=== PATIENT | female | born 2000 | race Caucasian/White ===

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

== ENCOUNTER 2019-02-14 22:27 | Outpatient (CLI) | payer MEDICAID ==
[2019-02-14 23:11] LABS: APPEARANCE,URINE SLIGHTLY-CLOUDY; BILIRUBIN,URINE NEGATIVE (NEGATIVE); GLUCOSE, URINE 150 mg/dL (NEGATIVE); KETONES,URINE NEGATIVE (NEGATIVE); LEUKOCYTE ESTERASE,URINE NEGATIVE (NEGATIVE); NITRITE,URINE NEGATIVE (NEGATIVE); PROTEIN,URINE 30 mg/dL (NEGATIVE); URINE SPECIFIC GRAVITY 1.035
[2019-02-14 23:12] LABS: COLOR,URINE YELLOW
[2019-02-14 23:40] LABS: URINE AMPHETAMINES SCREEN NEGATIVE; URINE BARBITURATES SCREEN NEGATIVE; URINE BENZODIAZEPINES SCREEN NEGATIVE; URINE COCAINE SCREEN NEGATIVE; URINE METHADONE SCREEN NEGATIVE; URINE PHENCYCLIDINE SCREEN NEGATIVE
[2019-02-14 23:41] LABS: URINE MARIJUANA (THC) SCREEN UNCONFIRMED POSITIVE
[2019-02-15 02:22] LABS: CHLAM PCR NOT DETECTED (NOT DETECT); GON PCR NOT DETECTED (NOT DETECT)
== END 2019-02-15 00:05 | disposition home or self-care (01) ==
LOC: LC 22:27
PROVIDERS: ATTEND Obstetrics & Gynecology
PROC: 4A1HXCZ Monitoring of Products of Conception, Cardiac Rate, External Approach (ICD-10-PCS; principal; 2019-02-14)
DX: O47.03 False labor before 37 completed weeks of gestation, third trimester (principal); Z3A.36 36 weeks gestation of pregnancy
CPT/HCPCS: 87077; 81001; 87081; 80307; 87491; 87591; 84112; 59025; G0480 ×2; 80349

== ENCOUNTER 2019-02-17 22:21 | Outpatient (CLI) | payer MEDICAID ==
--- NOTE | 2019-02-17 22:23 | Non Stress Test Report ---
Non Stress Test Datetime Report Generated by CPN: 02/17/2019 22:22 DEMOGRAPHIC Test Number: 1 EGA NST: 36.5 INDICATION Indication for Study: Ordered by Provider URINE RESULTS Urine Protein, NST: Positive Urine Ketones - NST: Negative Urine Glucose - NST: Positive Urine Blood - NST: Negative MONITORING Time on Monitor: 02/14/2019 22:44 Time off Monitor: 02/15/2019 23:56 NST Duration: 1512 NST INTERVENTIONS NST Interventions: PO Hydration Physician Notified NST: Dr.Marcus BABY A: [id number] BABY A Movement : Present Contraction Frequency : irreg FHR Baseline : 120 Accelerations : 15X15 Decelerations : None Variability : Moderate 6-25bpm NST Review: Meets Criteria for Reactive NST NST Review and Verified By : Pamela Campoverde RN NST Results: Reactive NST REPORT Report Trigger: Send Report
[2019-02-17 23:11] LABS: APPEARANCE,URINE CLOUDY; BILIRUBIN,URINE NEGATIVE (NEGATIVE); COLOR,URINE YELLOW; GLUCOSE, URINE NEGATIVE (NEGATIVE); KETONES,URINE NEGATIVE (NEGATIVE); LEUKOCYTE ESTERASE,URINE SMALL (NEGATIVE); NITRITE,URINE NEGATIVE (NEGATIVE); PROTEIN,URINE 30 mg/dL (NEGATIVE); URINE SPECIFIC GRAVITY 1.017; UROBILINOGEN,URINE NEGATIVE mg/dL (<2.0)
[2019-02-17 23:34] LABS: URINE AMPHETAMINES SCREEN NEGATIVE; URINE BARBITURATES SCREEN NEGATIVE; URINE BENZODIAZEPINES SCREEN NEGATIVE; URINE COCAINE SCREEN NEGATIVE; URINE METHADONE SCREEN NEGATIVE; URINE PHENCYCLIDINE SCREEN NEGATIVE
[2019-02-17 23:39] LABS: URINE MARIJUANA (THC) SCREEN UNCONFIRMED POSITIVE
--- NOTE | 2019-02-17 23:55 | Non Stress Test Report ---
Non Stress Test Datetime Report Generated by CPN: 02/17/2019 23:54 DEMOGRAPHIC Test Number: 2 EGA NST: 37.1 INDICATION Indication for Study: Other Indication for Study (NST) Other: Labor check VITAL SIGNS Temperature - NST: 98.3 Pulse - NST: 88 RESP - NST: 16 NBPSYS NST: 99 NBPDIA NST: 57 URINE RESULTS Urine Protein, NST: Positive Urine Ketones - NST: Negative Urine Glucose - NST: Negative Urine Blood - NST: Positive MONITORING Monitor Explained: Monitor Explained; Test Explained; Patient Verbalized Understanding Time on Monitor: 02/17/2019 22:44 Time off Monitor: 02/17/2019 23:20 NST Duration: 36 NST INTERVENTIONS NST Interventions: PO Hydration Physician Notified NST: Dr. Younger BABY A Movement : Present Contraction Frequency : None noted FHR Baseline : 125 Accelerations : 15X15 Decelerations : None Variability : Moderate 6-25bpm NST Review: Meets Criteria for Reactive NST NST Review and Verified By : E. Jilek RN NST Results: Reactive NST REPORT Report Trigger: Send Report
== END 2019-02-17 23:40 | disposition home or self-care (01) ==
LOC: LC 22:21
PROVIDERS: ATTEND Obstetrics & Gynecology
PROC: 4A1HXCZ Monitoring of Products of Conception, Cardiac Rate, External Approach (ICD-10-PCS; principal; 2019-02-17)
DX: O47.1 False labor at or after 37 completed weeks of gestation (principal); Z3A.37 37 weeks gestation of pregnancy
CPT/HCPCS: 59025; 80307; 81005; 84112

== ENCOUNTER 2019-02-24 10:30 | Inpatient (IN) | payer MEDICAID ==
[2019-02-24 11:12] LABS: APPEARANCE,URINE CLOUDY; BILIRUBIN,URINE NEGATIVE (NEGATIVE); COLOR,URINE YELLOW; GLUCOSE, URINE NEGATIVE (NEGATIVE); KETONES,URINE NEGATIVE (NEGATIVE); LEUKOCYTE ESTERASE,URINE TRACE (NEGATIVE); NITRITE,URINE NEGATIVE (NEGATIVE); PROTEIN,URINE 100 mg/dL (NEGATIVE); URINE SPECIFIC GRAVITY 1.005; UROBILINOGEN,URINE NEGATIVE mg/dL (<2.0)
[2019-02-24 11:33] LABS: URINE AMPHETAMINES SCREEN NEGATIVE; URINE BARBITURATES SCREEN NEGATIVE; URINE BENZODIAZEPINES SCREEN NEGATIVE; URINE COCAINE SCREEN NEGATIVE; URINE MARIJUANA (THC) SCREEN NEGATIVE; URINE METHADONE SCREEN NEGATIVE; URINE PHENCYCLIDINE SCREEN NEGATIVE
[2019-02-24] MEDS ORDERED: PENICILLIN G-K 5 MILLION UNIT VIAL ONE ×4 (11:51→23:52)
[2019-02-24] MEDS ORDERED: OXYTOCIN/NORMAL SALINE 20 UNIT/1,000 ML RTUINJ ONE (11:51)
[2019-02-24] MEDS ORDERED: MISOPROSTOL 0.2 MG TABLET ONE (11:51)
[2019-02-24] MEDS ORDERED: LIDOCAINE 1% INJ-PF (10 MG/ML) 30 ML SDV ONE (11:51)
[2019-02-24] MEDS ORDERED: OXYTOCIN/NORMAL SALINE 20 UNIT/1,000 ML RTUINJ IV PRN (11:52)
[2019-02-24] MEDS ORDERED: PENICILLIN G POTASSIUM 5,000,000 UNIT in DEXTROSE 5%-WATER 100 ML IV ONE (11:53)
--- NOTE | 2019-02-24 12:22 | Admission Physical ---
Datetime Report Generated by CPN: 02/24/2019 12:22 CURRENT ADMISSION Hx Assessment: The History has been Reviewed and is Current Chief Complaint: Suspected Ruptured Membranes Indication for Induction: PROM Admit Impression : Term, Intrauterine Admit Plan: Admit to Unit; Initiate Labor Augmentation Protocol ALLERGIES Medication Allergies: No Medication Allergies: No Known Allergies (02/24/2019) Latex: No Latex Allergies Food Allergies: No known allergies Environmental Allergies: No known allergies OBSTETRICAL HISTORY EDC: 03/09/2019 00:00 : 1 Para: 0 Term: 0 : 0 SAB: 0 IAB: 0 Ectopic: 0 Livin Cesareans: 0 VBACs: 0 Multiple Births: 0 Gestational Diabetes: No Rh Sensitization: No Incompetent Cervix: No RASHMI: No Infertility: No ART Treatment: No Uterine Anomaly: No IUGR: No Hx Previous C/S: No Macrosomia: No Hx Loss/Stillborn: No PIH: No Hx : No Placenta Previa/Abruption: No Depression/PP Depression: No PTL/PROM: No Post Hemorrhage: No Current Procedures: Ultrasound; NST Obstetrical History Comments: G1 - Current SEE RECORDS Alcohol: No Marijuana : No Cocaine: No Other Illicit Drugs: No Cigarettes: Never Smoker. [id number] MEDICAL HISTORY Diabetes: No Blood Transfusion: No Pulmonary Disease (Asthma, TB): No Breast Disease: No Hypertension: No Cloth Neutralizer Surgery: No Heart Disease: No Hosp/Surgery: No Autoimmune Disorder: No Anesthetic Complications: No Kidney Disease: No Abnormal Pap Smear: No Neuro/Epilepsy: No Psychiatric Disorders: No Other Medical Diseases: No Hepatitis/Liver Disease: No Significant Family History: No Varicosities/Phlebitis: No Trauma/Violence : No Thyroid Dysfunction: No INFECTIOUS HISTORY Gonorrhea: No Genital Herpes: No Chlamydia: No Tuberculosis: No Syphilis: No Hepatitis: No HIV/AIDS Exposure: No Rash or Viral Illness: No HPV: No PHYSICAL EXAM General: Normal Heart: Normal Lungs: Normal Breast: Normal Back: Normal Abdomen: Normal Extremities: Normal Vital Signs: Reviewed; Within Normal Limits VAGINAL EXAM Dilatation: 3 Effacement: 50 Station: -2 Contraction Comments: rare MEMBRANES Membranes: Ruptured Amniotic Fluid Color: Clear FETUS A EGA: 38.1 Monitoring: External US Variability: Moderate 6-25bpm Decelerations: None FHR Category: Category I Presentation: Vertex Admit Comment: 19yo @ 38.1 into L_D with SROM @1000 today. Pt. is B pos, RI, GBS positive with uncomplicated but sporadic and late entry to care. Penicillin started for GBS prophylaxis and will be augmented with pitocin per protocol. Denies any concerns at this time PLANS FOR LABOR AND DELIVERY Labor and Delivery: None Pain Management: Epidural Feeding Preference: Both Benefit of Breast Feed Discussed: Yes Circumcision: Yes INFORMED CONSENT Assignment: Gely Joshi MD Signature: with User ID: Manolo : with User ID: [email or web address]
[2019-02-24 12:23] LABS: ABSOLUTE BASOPHILS # (AUTO) 0.1 10^3/uL (0.0-0.2); ABSOLUTE EOSINOPHILS # (AUTO) 0.1 10^3/uL (0.0-0.6); ABSOLUTE LYMPHOCYTES (AUTO) 1.4 10^3/uL (0.5-4.7); ABSOLUTE MONOCYTES (AUTO) 0.6 10^3/uL (0.1-1.4); BASOPHILS % (AUTO) 1.2 % (0-2); EOSINOPHILS % (AUTO) 0.6 % (0-6); HEMATOCRIT 34.4 % (36.0-47.0); HEMOGLOBIN 11.8 g/dL (12.0-15.5); LYMPHOCYTES % (AUTO) 12.3 % (13-45); MEAN CORPUSCULAR HEMOGLOBIN 29.8 pg (27.0-33.4); MEAN CORPUSCULAR HGB CONC 34.2 g/dL (32.0-36.0); MEAN CORPUSCULAR VOLUME 87 fl (80-97); PLATELET COUNT 247 10^3/uL (150-450); RED BLOOD COUNT 3.95 10^6/uL (3.72-5.28); RED CELL DISTRIBUTION WIDTH 12.6 % (11.5-14.0); SEGMENTED NEUTROPHILS % (AUTO) 80.9 % (42-78); TOTAL CELLS COUNTED % (AUTO) 100 %; WHITE BLOOD COUNT 11.1 10^3/uL (4.0-10.5)
[2019-02-24] MEDS: PENICILLIN G POTASSIUM 2,500,000 UNIT in DEXTROSE 5%-WATER 50 ML IV SCH ×2 (16:07→20:19)
[2019-02-24] MEDS ORDERED: NALBUPHINE HCL INJ 10 MG/1 ML AMPULE INJ ONE (22:53)
[2019-02-24] MEDS ORDERED: PROMETHAZINE HCL INJ 25 MG/1 ML VIAL IV ONE (22:53)
[2019-02-24] MEDS ORDERED: NALBUPHINE HCL INJ 10 MG/1 ML AMPULE ONE (23:10)
[2019-02-24] MEDS ORDERED: PROMETHAZINE HCL INJ 25 MG/1 ML VIAL ONE (23:10)
[2019-02-25] MEDS ORDERED: OXYTOCIN/NORMAL SALINE 20 UNIT/1,000 ML RTUINJ ONE (02:13)
[2019-02-25] MEDS ORDERED: DIPH/PERTUSS(ACELL)/TETANUS VAC/PF 0.5 ML SYR (>=10YO) IM PRN (02:36)
[2019-02-25] MEDS ORDERED: OXYTOCIN/NORMAL SALINE 20 UNIT/1,000 ML RTUINJ IV PRN (02:36)
[2019-02-25] MEDS ORDERED: ZOLPIDEM TARTRATE 5 MG TABLET PO PRN (02:36)
[2019-02-25] MEDS ORDERED: ACETAMINOPHEN WITH CODEINE #3 TABLET PO PRN ×2 (02:36)
[2019-02-25] MEDS ORDERED: DIBUCAINE 1% OINTMENT 56 GM TP PRN (02:36)
[2019-02-25] MEDS ORDERED: BENZOCAINE/MENTHOL AEROSOL SPRAY 56 ML TOP PRN (02:36)
--- NOTE | 2019-02-25 03:58 | Delivery Summary ---
Del Sum A-C Datetime Report Generated by CPN: 02/25/2019 03:58 DELIVERY PERSONNEL DELIVERY PERSONNEL: [id number] Delivery Doctor:: Gely Joshi MD Labor and Delivery Nurse:: Erin Flores RN Labor and Delivery Nurse:: Destiny Ribeiro RN Bobbin Loose End Finder:: Hien Muir RN Nursery Nurse:: Bailee Crawford RN Manager Molecular/MANAGER OF DATA: Jane Khalil, BASKETBALL COMMENTATOR MATERNAL INFORMATION Delivery Anesthesia: Local Medications After Delivery: Pitocin Drip 20 Units/1000ml NSS Maternal Complications: None Provider Comments: of a viable male at 0205 with an OA presentation; APGARS 8, 9; right mediolateral episiotomy LABOR SUMMARY EDC: 03/09/2019 00:00 No. Babies in Womb: 1 Attempted: Yes Labor Anesthesia: None LABOR INFORMATION Reason for Induction: Premature Rupture of Membranes Onset of Labor: 02/24/2019 22:48 Complete Dilatation: 02/25/2019 01:24 Oxytocin: Augmentation Group B Beta Strep: Positive Antibiotics # of Doses: 4 Antibiotics Time of Last Dose: 2428 Name of Antibiotic Given: PCN Steroids Given: None Reason Steroids Not Administered: Not Applicable MEMBRANES Membranes Rupture Method: Spontaneous Rupture of Membranes: 02/24/2019 10:00 Length of Rupture (hr): 16.08 Amniotic Fluid Color: Clear Amniotic Fluid Amount: Moderate Amniotic Fluid Odor: Normal STAGES OF LABOR Stage 1 hr: 2 Stage 1 min: 36 Stage 2 hr: 0 Stage 2 min: 41 Stage 3 hr: 0 Stage 3 min: 5 Total Time in Labor hr: 3 Total Time in Labor min: 22 VAGINAL DELIVERY Episiotomy: Right Mediolateral Laceration #1: Perineal Laceration Extension #1: Second Degree Laceration Repair: Yes Laceration Repair Note: Episiotomy was repaired with 3-0 Vicryl; no extension Sponge Count Correct: Yes Sharps Count Correct: Yes CSECTION DELIVERY Primary Indication: N/A Secondary Indication: N/A CSection Incidence: N/A Labor: N/A Elective: N/A CSection Incision: N/A BABY A INFORMATION Delivery Date/Time: 02/25/2019 02:05 Method of Delivery: Vaginal Born in Route : No : N/A Forceps: N/A Vacuum Extraction: N/A Shoulder Dystocia : No PRESENTATION/POSITION BABY A Presentation: Cephalic Cephalic Presentation: Vertex Vertex Position: Right Occipital Anterior Breech Presentation: N/A PLACENTA INFORMATION BABY A Placenta Delivery Time : 02/25/2019 02:10 Placenta Method of Delivery: Spontaneous Placenta Status: Delivered SCORES BABY A Heart Rate 1 min: >100 bpm Resp Effort 1 min: Good Cry Reflex Irritability 1 min: Cough or Sneeze or Pulls Away Muscle Tone 1 min: Active Motion Color 1 min: Blue/Pale SCORE 1 MIN: 8 Heart Rate 5 min: >100 bpm Resp Effort 5 min: Good Cry Reflex Irritability 5 min: Cough or Sneeze or Pulls Away Muscle Tone 5 min: Active Motion Color 5 min: Body Wood-Ridge, Extremities Blue SCORE 5 MIN: 9 INFANT INFORMATION BABY A Gestational Age at Delivery: 38.2 Gestational Status: Early Term- 37- 38.6 Weeks Infant Outcome : Liveborn Condition : Stable Infant Sex: Male IDENTIFICATION BABY A Verification Date/Time: 02/25/2019 02:15 ID Band Number: [id number] Mother's Name Verified: Yes Infant RN Verifying : C. Gentilin, RN A. Killinger, RN WEIGHT/LENGTH BABY A Birthweight (gm): 3181 Infant Weight (lb): 7 Infant Weight (oz): 0 Infant Length (in): 20.25 Infant Length (cm): 51.44 CORD INFORMATION BABY A No. Cord Vessels: 3 Nuchal Cord : N/A Cord Blood Taken: Yes-For Storage (Mom's Blood type +) Suction: None ASSESSMENT BABY A Skin to Skin: No Transferred To: Remains with Mother BABY B INFORMATION : N/A SIGNATURES Signature: with User ID: [email or web address]
[2019-02-25] MEDS: PENICILLIN G POTASSIUM 2,500,000 UNIT in DEXTROSE 5%-WATER 50 ML IV SCH (06:28)
[2019-02-25] MEDS: IBUPROFEN 800 MG TABLET PO SCH ×3 (07:30→22:38)
[2019-02-25] MEDS: DOCUSATE SODIUM 100 MG CAPSULE PO SCH ×2 (10:30→18:08)
[2019-02-25] MEDS: SENNOSIDES/DOCUSATE 8.6-50 MG 1 EACH TABLET PO SCH (10:30)
[2019-02-25] MEDS: PRENATAL VITAMIN W DHA CAPSULE PO SCH (10:31)
[2019-02-25] MEDS: FERROUS SULFATE 325 MG TABLET PO SCH ×2 (10:31→18:08)
[2019-02-26 06:32] LABS: HEMATOCRIT 32.1 % (36.0-47.0); HEMOGLOBIN 10.9 g/dL (12.0-15.5); MEAN CORPUSCULAR HEMOGLOBIN 29.3 pg (27.0-33.4); MEAN CORPUSCULAR HGB CONC 33.9 g/dL (32.0-36.0); MEAN CORPUSCULAR VOLUME 86 fl (80-97); PLATELET COUNT 238 10^3/uL (150-450); RED BLOOD COUNT 3.72 10^6/uL (3.72-5.28)
[2019-02-26] MEDS: IBUPROFEN 800 MG TABLET PO SCH ×3 (06:51→22:56)
[2019-02-26] MEDS: PRENATAL VITAMIN W DHA CAPSULE PO SCH (09:31)
[2019-02-26] MEDS: DOCUSATE SODIUM 100 MG CAPSULE PO SCH ×2 (09:31→18:31)
[2019-02-26] MEDS: FERROUS SULFATE 325 MG TABLET PO SCH ×2 (09:31→18:31)
[2019-02-26] MEDS: SENNOSIDES/DOCUSATE 8.6-50 MG 1 EACH TABLET PO SCH (09:31)
--- NOTE | 2019-02-26 10:03 | PDOC PROGRESS REPORT ---
Subjective-OB Progress Note for:: 02/26/19 - PP day #1, doing well, no complaints, breast and bottlefeeding, B+, Rubella Immune. Hx of +THC in urine during this Physical Exam (OB) Vital Signs: Temp Pulse Resp BP Pulse Ox 97.9 F 74 14 115/74 100 02/26/19 08:34 02/26/19 08:34 02/26/19 08:34 02/26/19 08:34 02/26/19 08:34 Intake & Output 02/25/19 02/26/19 02/27/19 06:59 06:59 06:59 Intake Total 50 300 Balance 50 300 Weight 69.6 kg - General General Appearance: Appears well, Alert In distress: None - PIH/Pre-Eclampsia Headache: Absent Epigastric Pain: No Visual Changes: No - Episiotomy/Laceration Episiotomy/Laceration Note: Midline Episiotomy with repair - Lochia Lochia Amount: Small 10-25 ml Lochia Color: Rubra/Red - Abdomen Description: Soft, Round Hernia Present: No Fundal Description: Firm, Midline Fundal Height: u/u - u/2 - Respiratory Respiratory Status: No respiratory distress - Abdominal Distension: No distension - Genitourinary Genitourinary Note: voiding - Extremities Upper extremity: Normal inspection Lower extremities: Normal inspection - Neurological Cognition: Normal Orientation: AAOx4 - Psychological Associated symptoms: Normal affect, Normal mood - Skin Skin Temperature: Warm Skin Moisture: Dry Objective-Diagnostic Laboratory: 02/26/19 06:18 02/26/19 06:18 WBC 11.0 H RBC 3.72 Hgb 10.9 L Hct 32.1 L MCV 86 MCH 29.3 MCHC 33.9 RDW 13.0 Plt Count 238 Assessment and Plan(PN) - Assessment and Plan (1) Normal vaginal delivery Is this a current diagnosis for this admission?: Yes (2) Obstetrical laceration, second degree Is this a current diagnosis for this admission?: Yes (3) Qualifiers: Weeks of gestation: 40 weeks Qualified Code(s): Z3A.40 - 40 weeks gestation of Is this a current diagnosis for this admission?: Yes - Time Spent with Patient Time with patient: Less than 15 minutes Medications reviewed and adjusted accordingly: Yes - Disposition Anticipated Discharge: Home Within: within 24 hours
[2019-02-27] MEDS: IBUPROFEN 800 MG TABLET PO SCH (05:11)
[2019-02-27 08:56] VITALS: BP 113/64
[2019-02-27] MEDS: DOCUSATE SODIUM 100 MG CAPSULE PO SCH (10:03)
[2019-02-27] MEDS: PRENATAL VITAMIN W DHA CAPSULE PO SCH (10:03)
[2019-02-27] MEDS: FERROUS SULFATE 325 MG TABLET PO SCH (10:03)
[2019-02-27] MEDS: SENNOSIDES/DOCUSATE 8.6-50 MG 1 EACH TABLET PO SCH (10:03)
--- NOTE | 2019-02-27 10:35 | PDOC PROGRESS REPORT ---
Subjective-OB Progress Note for:: 02/27/19 Subjective: Ready for discharge. Physical Exam (OB) Vital Signs: Temp Pulse Resp BP Pulse Ox 98.3 F 80 15 113/64 97 02/27/19 08:55 02/27/19 08:55 02/27/19 08:55 02/27/19 08:55 02/27/19 08:55 Intake & Output 02/26/19 02/27/19 02/28/19 06:59 06:59 06:59 Intake Total 300 480 Balance 300 480 - PIH/Pre-Eclampsia Clonus: Negative Headache: Absent Epigastric Pain: No Visual Changes: No - Lochia Lochia Amount: Scant < 10 ml Lochia Color: Rubra/Red - Abdomen Description: Tender Hernia Present: No Bowel Sounds: Normoactive Flatus Presence: Present Stool: Yes Fundal Description: Firm, Midline Fundal Height: u/u - u/2 Objective-Diagnostic Laboratory: 02/26/19 06:18 Assessment and Plan(PN) - Time Spent with Patient Medications reviewed and adjusted accordingly: Yes - Disposition Anticipated Discharge: Home
--- NOTE | 2019-02-27 10:40 | PDOC DISCHARGE SUMMARY ---
Final Diagnosis Discharge Date: 02/27/19 - Final Diagnosis (1) Marijuana use in Is this a current diagnosis for this admission?: Yes (2) Normal vaginal delivery Is this a current diagnosis for this admission?: Yes (3) Obstetrical laceration, second degree Is this a current diagnosis for this admission?: Yes (4) Positive GBS test Is this a current diagnosis for this admission?: Yes (5) Is this a current diagnosis for this admission?: Yes Discharge Data - Discharge Medication Home Medications: Vit,Calc76/Iron/Folic [Pnv 29-1 Tablet] 1 tab PO DAILY 02/14/19 Gestational Age: 38.2 wks Reason(s) for Admission: PROM Procedures: Ultrasound Intrapartum Procedure(s): Spontaneous Vaginal Delivery Complication(s): Episiotomy - [place] Data Baby 1 Male at 1 minute: 8 at 5 minutes: 9 Weight: 3.175 kg Home with Mother: Yes Complications: No - Diagnosis Test Laboratory: Temp Pulse Resp BP Pulse Ox 98.3 F 80 15 113/64 97 02/27/19 08:55 02/27/19 08:55 02/27/19 08:55 02/27/19 08:55 02/27/19 08:55 02/24/19 02/24/19 02/26/19 10:37 12:06 06:18 RBC 3.95 3.72 Hgb 11.8 L 10.9 L Hct 34.4 L 32.1 L Urine Opiates Screen NEGATIVE - Discharge information/Instructions Discharge Activity: Activity As Tolerated, Balance Activity w/Rest, Pelvic Rest, Slowly Increase Activity, No tub bath Discharge Diet: Regular Disposition: HOME, SELF-CARE Follow up with: [facility] in: 4, Weeks
== END 2019-02-27 13:58 | disposition home or self-care (01) | DRG 807 ==
LOC: LC 10:30 → LR 11:13 → 2S 02-25 04:25
PROVIDERS: ADMIT Obstetrics & Gynecology; ATTEND Obstetrics & Gynecology
PROC: 10E0XZZ Delivery of Products of Conception, External Approach (ICD-10-PCS; principal; 2019-02-25)
PROC: 0KQM0ZZ Repair Perineum Muscle, Open Approach (ICD-10-PCS; 2019-02-25)
PROC: 0W8NXZZ Division of Female Perineum, External Approach (ICD-10-PCS; 2019-02-25)
DX: O42.02 Full-term premature rupture of membranes, onset of labor within 24 hours of rupture (principal); Z37.0 Single live birth; O99.824 Streptococcus B carrier state complicating childbirth; O70.1 Second degree perineal laceration during delivery; Z3A.38 38 weeks gestation of pregnancy
CPT/HCPCS: 36415; 80307; 81005; 84112; 85025; 85027; 86592; 86850; 86900; 86901; J2300; J2540; J2550; J2590; J3490

== ENCOUNTER 2020-07-07 21:53 | Outpatient (CLI) | payer MEDICAID ==
[2020-07-07 22:33] LABS: APPEARANCE,URINE CLOUDY; BILIRUBIN,URINE NEGATIVE (NEGATIVE); COLOR,URINE YELLOW; GLUCOSE, URINE NEGATIVE (NEGATIVE); KETONES,URINE NEGATIVE (NEGATIVE); LEUKOCYTE ESTERASE,URINE NEGATIVE (NEGATIVE); NITRITE,URINE NEGATIVE (NEGATIVE); PROTEIN,URINE NEGATIVE (NEGATIVE); URINE SPECIFIC GRAVITY 1.024; UROBILINOGEN,URINE NEGATIVE mg/dL (<2.0)
[2020-07-07 22:48] LABS: URINE AMPHETAMINES SCREEN NEGATIVE; URINE BARBITURATES SCREEN NEGATIVE; URINE BENZODIAZEPINES SCREEN NEGATIVE; URINE COCAINE SCREEN NEGATIVE; URINE MARIJUANA (THC) SCREEN NEGATIVE; URINE METHADONE SCREEN NEGATIVE; URINE PHENCYCLIDINE SCREEN NEGATIVE
--- NOTE | 2020-07-07 23:52 | RADIOLOGY REPORT (SQ) ---
US PELVIS HISTORY: Pre-term contractions. Evaluate cervical length. COMPARISON: None. TECHNIQUE: Grayscale, color Doppler, and spectral Doppler ultrasound images of the pelvis were obtained. FINDINGS: There is a single live intrauterine gestation in variable presentation. The placenta is fundal. heart rate is 180 bpm. SAURABH is 14.6 cm. Cervix is 2.4 cm in length and contains a small amount of fluid within the endocervical canal. IMPRESSION: Single live IUP with small amount of fluid in the endocervical canal. Recommend follow-up imaging to evaluate for cervical funneling.
[2020-07-08] MEDS ORDERED: BETAMET ACET/BETAMET NA INJ 6 MG/1 ML IM PRN (00:29)
[2020-07-08] MEDS ORDERED: BETAMET ACET/BETAMET NA INJ 6 MG/1 ML ONE (00:50)
== END 2020-07-08 02:00 | disposition home or self-care (01) ==
LOC: LC 21:53
PROVIDERS: ATTEND Obstetrics & Gynecology
DX: O47.03 False labor before 37 completed weeks of gestation, third trimester (principal); Z3A.31 31 weeks gestation of pregnancy
CPT/HCPCS: 59025; 81001; 80307; 76815; J0702

== ENCOUNTER 2020-07-08 21:06 | Outpatient (CLI) | payer MEDICAID ==
[2020-07-08] MEDS ORDERED: BETAMET ACET/BETAMET NA INJ 6 MG/1 ML ONE (21:09)
[2020-07-08] MEDS ORDERED: BETAMET ACET/BETAMET NA INJ 6 MG/1 ML IM ONE (21:11)
== END 2020-07-08 21:14 | disposition home or self-care (01) ==
LOC: LC 21:06
PROVIDERS: ATTEND Obstetrics & Gynecology
DX: O47.03 False labor before 37 completed weeks of gestation, third trimester (principal); Z3A.31 31 weeks gestation of pregnancy
CPT/HCPCS: 59025; J0702; 96372

== ENCOUNTER 2020-08-27 11:45 | Outpatient (CLI) | payer MEDICAID ==
[2020-08-27 13:01] LABS: APPEARANCE,URINE SLIGHTLY-CLOUDY; BILIRUBIN,URINE NEGATIVE (NEGATIVE); COLOR,URINE YELLOW; GLUCOSE, URINE NEGATIVE (NEGATIVE); KETONES,URINE NEGATIVE (NEGATIVE); LEUKOCYTE ESTERASE,URINE MODERATE (NEGATIVE); NITRITE,URINE NEGATIVE (NEGATIVE); PROTEIN,URINE NEGATIVE (NEGATIVE); URINE SPECIFIC GRAVITY 1.006; UROBILINOGEN,URINE NEGATIVE mg/dL (<2.0)
[2020-08-27 13:17] LABS: URINE AMPHETAMINES SCREEN NEGATIVE; URINE BARBITURATES SCREEN NEGATIVE; URINE BENZODIAZEPINES SCREEN NEGATIVE; URINE COCAINE SCREEN NEGATIVE; URINE MARIJUANA (THC) SCREEN NEGATIVE; URINE METHADONE SCREEN NEGATIVE; URINE PHENCYCLIDINE SCREEN NEGATIVE
--- NOTE | 2020-08-27 13:44 | RADIOLOGY REPORT (SQ) ---
EXAM DESCRIPTION: U/S OB LIMITED IMAGES COMPLETED DATE/TIME: 08/27/2020 1:28 pm REASON FOR STUDY: please document SAURABH COMPARISON: 07/07/2020 TECHNIQUE: Limited transabdominal grayscale ultrasound for evaluation of specific requested obstetri shara parameters. LIMITATIONS: None. FINDINGS: CERVICAL LENGTH: 2.7 cm Closed. SAURABH: 21.7 cm cm. FHR: 140 beats per minute. PRESENTATION: Cephalic. PLACENTA: Fundal grade 3 ANATOMY: Not assessed OTHER: Intrauterine gestation of 37 weeks 3 days. IMPRESSION: LIMITED OBSTETRICAL ULTRASOUND WITH MEASURED PARAMETERS DELINEATED ABOVE. Trimester of : Third trimester - 28 weeks to delivery. TECHNICAL DOCUMENTATION: JOB ID: [id number] 2010 [employer]- All Rights Reserved Reading location - IP/workstation name: [email or web address]
--- NOTE | 2020-08-27 13:47 | Non Stress Test Report ---
Non Stress Test Datetime Report Generated by CPN: 08/27/2020 13:47 DEMOGRAPHIC EGA NST: 38.6 INDICATION Indication for Study (NST) Other: LC at 38.6 MONITORING Monitor Explained: Monitor Explained; Test Explained; Patient Verbalized Understanding Time on Monitor: 08/27/2020 12:30 Time off Monitor: 08/27/2020 13:09 NST Duration: 39 NST INTERVENTIONS NST Interventions: None Physician Notified NST: N.Claire,CNM BABY A: [id number] BABY A Movement : Present Contraction Frequency : None FHR Baseline : 145 Accelerations : 15X15 Decelerations : None Variability : Moderate 6-25bpm NST Review: Meets Criteria for Reactive NST NST Review and Verified By : Alaina Wheatland RN NST Results: Reactive NST COMMENTS NST Comments: CNM on unit reviewing FHT strip NST REPORT Report Trigger: Send Report
== END 2020-08-27 13:46 | disposition home or self-care (01) ==
LOC: LC 11:45
PROVIDERS: ATTEND Student in an Organized Health Care Education/Training Program
DX: O42.92 Full-term premature rupture of membranes, unspecified as to length of time between rupture and onset of labor (principal); Z3A.38 38 weeks gestation of pregnancy
CPT/HCPCS: 76815; 80307; 81005; 84112

== ENCOUNTER 2020-09-02 06:44 | Inpatient (IN) | payer MEDICAID ==
[2020-09-02 07:43] LABS: APPEARANCE,URINE CLEAR; BILIRUBIN,URINE NEGATIVE (NEGATIVE); COLOR,URINE YELLOW; GLUCOSE, URINE NEGATIVE (NEGATIVE); KETONES,URINE NEGATIVE (NEGATIVE); LEUKOCYTE ESTERASE,URINE NEGATIVE (NEGATIVE); NITRITE,URINE NEGATIVE (NEGATIVE); PROTEIN,URINE NEGATIVE (NEGATIVE); URINE SPECIFIC GRAVITY 1.016; UROBILINOGEN,URINE NEGATIVE mg/dL (<2.0)
[2020-09-02 07:59] LABS: URINE AMPHETAMINES SCREEN NEGATIVE; URINE BARBITURATES SCREEN NEGATIVE; URINE BENZODIAZEPINES SCREEN NEGATIVE; URINE COCAINE SCREEN NEGATIVE; URINE MARIJUANA (THC) SCREEN NEGATIVE; URINE METHADONE SCREEN NEGATIVE; URINE PHENCYCLIDINE SCREEN NEGATIVE
--- NOTE | 2020-09-02 08:21 | Admission Physical ---
Datetime Report Generated by CPN: 09/02/2020 08:21 CURRENT ADMISSION Chief Complaint: Suspected Ruptured Membranes Indication for Induction: Not Applicable Admit Impression : Term, Intrauterine ; No Active Labor; Ruptured Membranes Admit Impression- Other: SROM at 0530 w clear fluid Admit Plan: Admit to Unit; Initiate Labor Protocol ALLERGIES Medication Allergies: No Medication Allergies: No Known Allergies (09/02/2020) Latex: No Latex Allergies OBSTETRICAL HISTORY EDC: 09/04/2020 00:00 : 2 Para: 1 Term: 1 : 0 SAB: 0 IAB: 0 Livin Gestational Diabetes: No Rh Sensitization: No Incompetent Cervix: No RASHMI: No Infertility: No ART Treatment: No Uterine Anomaly: No IUGR: No Hx Previous C/S: No Macrosomia: No Hx Loss/Stillborn: No PIH: No Hx : No Placenta Previa/Abruption: No Depression/PP Depression: No PTL/PROM: No Post Hemorrhage: No Current Procedures: Ultrasound Obstetrical History Comments: G1 2019 G2 current SEE RECORDS Alcohol: No Marijuana : No Cocaine: No Other Illicit Drugs: No Cigarettes: Never Smoker. [id number] MEDICAL HISTORY Diabetes: No Blood Transfusion: No Pulmonary Disease (Asthma, TB): No Breast Disease: No Hypertension: No Pneumatic Tool Operator Surgery: No Heart Disease: No Hosp/Surgery: No Autoimmune Disorder: No Anesthetic Complications: No Kidney Disease: No Abnormal Pap Smear: No Neuro/Epilepsy: No Psychiatric Disorders: No Other Medical Diseases: No Hepatitis/Liver Disease: No Significant Family History: No Varicosities/Phlebitis: No Trauma/Violence : No Thyroid Dysfunction: No INFECTIOUS HISTORY Gonorrhea: No Genital Herpes: No Chlamydia: No Tuberculosis: No Syphilis: No Hepatitis: No HIV/AIDS Exposure: No Rash or Viral Illness: No HPV: No PHYSICAL EXAM General: Normal HEENT: Normal Neurologic: Normal Thyroid: Deferred Heart: Normal Lungs: Normal Breast: Deferred Back: Normal Abdomen: Normal Genitourinary Exam: Deferred Extremities: Normal DTRs: Normal Pelvic Type: Adequate Vital Signs: Reviewed; Within Normal Limits VAGINAL EXAM Dilatation: 4 MEMBRANES Membranes: Ruptured Amniotic Fluid Color: Clear FETUS A EGA: 39.5 Monitoring: External US FHR- Baseline: 140 Variability: Moderate 6-25bpm Accelerations: Absent Decelerations: None Presentation: Vertex Admit Comment: SROM at 0530 w clear fluid 4-5 cm on arrival GBS neg Proven for 7 lbs Closely-spaced pregnancies--1 yr old at home Late onset care-began care in at [facility] ASCUS pap, no HPV PTL in 07/07/2020-given steroids Plans unmedicated delivery-has epidural option records on chart Anticipate PLANS FOR LABOR AND DELIVERY Labor and Delivery: None Pain Management: Natural Feeding Preference: Both Circumcision: Yes INFORMED CONSENT Assignment: Hien Armijo MD Signature: with User ID: Angelika : with User ID: Angelika : I personally evaluated and examined the patient in conjunction with the MLP and agree with the assessment, treatment plan and disposition.
[2020-09-02 08:40] LABS: HEMATOCRIT 33.7 % (36.0-47.0); HEMOGLOBIN 11.2 g/dL (12.0-15.5); MEAN CORPUSCULAR HEMOGLOBIN 27.5 pg (27.0-33.4); MEAN CORPUSCULAR HGB CONC 33.2 g/dL (32.0-36.0); MEAN CORPUSCULAR VOLUME 83 fl (80-97); PLATELET COUNT 290 10^3/uL (150-450); RED BLOOD COUNT 4.06 10^6/uL (3.72-5.28); RED CELL DISTRIBUTION WIDTH 13.4 % (11.5-14.0); WHITE BLOOD COUNT 11.2 10^3/uL (4.0-10.5)
[2020-09-02] MEDS ORDERED: OXYTOCIN/0.9 % SODIUM CHLORIDE 30 UNIT/500 ML RTUINJ IV PRN ×2 (09:20→12:37)
[2020-09-02] MEDS ORDERED: OXYTOCIN/0.9 % SODIUM CHLORIDE 30 UNIT/500 ML RTUINJ ONE (09:24)
[2020-09-02] MEDS ORDERED: RINGERS SOLUTION,LACTATED 1,000 ML IV PRN (09:44)
[2020-09-02] MEDS ORDERED: OXYTOCIN 10 UNIT/ML VIAL ONE (10:26)
[2020-09-02] MEDS ORDERED: MISOPROSTOL 0.2 MG TABLET ONE (10:26)
[2020-09-02] MEDS ORDERED: LIDOCAINE 1% INJ-PF (10 MG/ML) 30 ML SDV ONE (10:27)
[2020-09-02] MEDS ORDERED: EPHEDRINE SULFATE INJ 50 MG/1 ML AMPULE ONE (11:42)
[2020-09-02] MEDS ORDERED: FENTANYL/BUPIVACAINE/NS/PF 0 MCG/0 ML RTUINJ EPI ONE (11:42)
[2020-09-02] MEDS ORDERED: ROPIVACAINE HCL 0.2% INJ/PF (2 MG/ML) 20 ML SDV ONE (11:43)
--- NOTE | 2020-09-02 12:32 | Warning Signs in Babies ---
VOD Warning Signs Datetime Report Generated by [facility]: 09/02/2020 12:31 VOD#608 -Warning Signs in Babies: Needs to be viewed. (07/07/2020 21:57:Delicia Go RN)
[2020-09-02] MEDS ORDERED: DIPH/PERTUSS(ACELL)/TETANUS VAC/PF 0.5 ML SYR (>=10YO) IM PRN (12:37)
[2020-09-02] MEDS ORDERED: ACETAMINOPHEN 650 MG SUPP.RECT PR PRN (12:37)
[2020-09-02] MEDS ORDERED: DIBUCAINE 1% OINTMENT 28 GM TP PRN (12:37)
[2020-09-02] MEDS ORDERED: PROMETHAZINE HCL 25 MG TABLET PO PRN (12:37)
[2020-09-02] MEDS ORDERED: PROMETHAZINE HCL 25 MG SUPP.RECT PR PRN (12:37)
[2020-09-02] MEDS ORDERED: MAGNESIUM HYDROXIDE SUSP 30 ML UDCUP PO PRN (12:37)
[2020-09-02] MEDS ORDERED: MEASLES,MUMPS&RUBELLA VACC/PF 0.5 ML VIAL SUBCUT PRN (12:37)
[2020-09-02] MEDS ORDERED: ACETAMINOPHEN WITH CODEINE #3 TABLET PO PRN ×2 (12:37)
[2020-09-02] MEDS ORDERED: ZOLPIDEM TARTRATE 5 MG TABLET PO PRN (12:37)
[2020-09-02] MEDS ORDERED: NA PHOS,M-B/NA PHOS,DI-BA (ADULT) 133 ML ENEMA PR PRN (12:37)
[2020-09-02] MEDS ORDERED: PROMETHAZINE HCL INJ 25 MG/1 ML VIAL IV PRN (12:37)
[2020-09-02] MEDS ORDERED: PSEUDOEPHEDRINE HCL 30 MG TABLET PO PRN (12:37)
[2020-09-02] MEDS ORDERED: DIPHENHYDRAMINE HCL 25 MG CAPSULE PO PRN (12:37)
[2020-09-02] MEDS ORDERED: BENZOCAINE/MENTHOL AEROSOL SPRAY 56 ML TOP PRN (12:37)
[2020-09-02] MEDS ORDERED: GLYCERIN/WITCH HAZEL LEAF 1 EACH MED..WIPE TP PRN (12:37)
--- NOTE | 2020-09-02 14:02 | Birth Certificate Data ---
Cert Data Datetime Report Generated by [employer]: 09/02/2020 14:02 CERTIFICATE DATA 47a. Care: Yes (07/07/2020 21:57:Terri Rodriguez RN) 47b. Date of First Visit: 04/06/2020 00:00 (07/07/2020 21:57:Terri Rodriguez RN) 47c. Date of Last Visit: 09/01/2020 00:00 (07/07/2020 21:57:Terri Rodriguez RN) 47d. Number of Visits: 12 (Annotations: Data stored by [facility] on behalf of user) (07/07/2020 21:57:Terri Rodriguez RN) 48b. Now Livin (07/07/2020 21:57:Kay Pineda RN) 48d. Date of Last Live : 02/25/2019 00:00 (07/07/2020 21:57:Kay Pineda RN) RISK FACTORS IN THIS 49a. Diabetes: No (07/07/2020 21:57:Kay Pineda RN) 49b. Hypertension: No (07/07/2020 21:57:Kay Pineda RN) 49c. Previous Births: 0 (07/07/2020 21:57:Delicia Go RN) 49d. Stillborns: No (07/07/2020 21:57:Kay Pineda RN) 49d. IUGR: No (07/07/2020 21:57:Kay Pineda RN) 49e. Infertility Treatment: No (07/07/2020 21:57:Kay Pineda RN) Mother's Height 50b. Height Inches: 65 (07/07/2020 22:04:QS system process) Mother's Weight 51b. Weight at Delivery (lbs): 161 (09/02/2020 07:37:QS system process) Infections Present/Treated 53a. Gonorrhea: No (07/07/2020 21:57:Kay Pineda RN) Results this Hospital Visit : Negative (07/07/2020 21:57:Terri Rodriguez RN) 53b. Syphilis: No (07/07/2020 21:57:Kay Pineda RN) Results this Hospital Visit: NONREACTIVE (09/02/2020 08:18:QS system process) 53c. Chlamydia: No (07/07/2020 21:57:Kay Pineda RN) Results this Hospital Visit: Negative (07/07/2020 21:57:Terri Rodriguez RN) 53d. Hepatitis B: No (07/07/2020 21:57:Kay Pineda RN) Results this Hospital Visit: Negative (07/07/2020 21:57:Terri Rodriguez RN) 53e. Hepatitis C: Negative (07/07/2020 21:57:Delicia Go RN) 53h. Mother Tested for HBsAG: Yes (07/07/2020 21:57:Terri Rodriguez RN) 53i. Date Tested: 04/15/2020 00:00 (07/07/2020 21:57:Terri Rodriguez RN) 53j. Test Result: Negative (07/07/2020 21:57:Terri Victoriaramses Rodriguez RN) Obstetric Procedures 54a, b, c. Obstetric Procedures: Ultrasound (07/07/2020 21:57:Kay Pineda RN) Cigarette Smoking Cigarette Smoking: Never Smoker. [id number] (07/07/2020 21:57:Kay Pineda RN) 55a. 3 Months Before Preg - Ci (07/07/2020 21:57:eDlicia Go RN) 55a. Packs: 0 (07/07/2020 21:57:Delicia Go RN) 55b. 1st Trimester of Preg- Ci (07/07/2020 21:57:Delicia Go RN) 55b. Packs: 0 (07/07/2020 21:57:Delicia Go RN) 55c. 2nd Trimester of Preg- Ci (07/07/2020 21:57:Delicia Go RN) 55c. Packs: 0 (07/07/2020 21:57:Delicia Go RN) 55d. 3rd Trimester of Preg- Ci (07/07/2020 21:57:Delicia Go RN) 55d. Packs: 0 (07/07/2020 21:57:Delicia Go RN) Onset of Labor 56a. PROM >12 Hrs: 6.67 (09/02/2020 07:20:QS system process) 56b. Precipitous Labor <3 Hrs: 6 (09/02/2020 07:20:QS system process) 56c. Prolonged Labor > 20 Hrs: 6 (09/02/2020 07:20:QS system process) 57a. Induction of Labor: Augmentation (07/07/2020 21:57:Delicia Go RN) 57c. Non-Vertex Presentation A: Vertex (07/07/2020 21:57:Delicia Go RN) 57d. Steroids - Lung Mat: > 24 Hours before Delivery (07/07/2020 21:57:Delicia Go RN) 57d. Steroids - Lung Mat: Celestone 12mg IM - Dose 2 (07/08/2020 21:10:Destiny Ribeiro RN) 57d. Steroids - Lung Mat: Not Applicable (07/07/2020 21:57:Christina Camacho CNM) 57g. Moderate/Heavy Meconium: Clear (09/02/2020 07:20:Terri Rodriguez RN) 57h. Intolerance of Labor: N/A (07/07/2020 21:57:Delicia Go RN) : N/A (07/07/2020 21:57:Delicia Go RN) 57i. Epidural/Spinal Anesthesia: None (07/07/2020 21:57:Delicia Go RN) Method of Delivery 58a. Forceps - Unsuccessful A: N/A (07/07/2020 21:57:Delicia Go RN) 58b. Vacuum - Unsuccessful A: N/A (07/07/2020 21:57:Delicia Go RN) 58c. Presentation at 58c. Presentation at - A : Vertex (07/07/2020 21:57:Delicia Go RN) 58c. Presentation at - A : N/A (07/07/2020 21:57:Delicia Go RN) 58c. Presentation at - A : Cephalic (07/07/2020 21:57:Delicia Go RN) Final Route and Method of Del 58d. Baby A Route/Delivery: Vaginal (09/02/2020 12:10:Delicia Go RN) 58e. Trial of Labor Attempted: No (07/07/2020 21:57:Delicia Go RN) 58e. Trial of Labor Attempted A: N/A (07/07/2020 21:57:Delicia Go RN) 58e. Trial of Labor Attempted B: N/A (07/07/2020 21:57:Delicia Go RN) Maternal Morbidity 59b. 3rd or 4th Degree Lacs: Perineal (07/07/2020 21:57:Christina Camacho CNM) 59b. 3rd or 4th Degree Lacs: Superficial (07/07/2020 21:57:Delicia Go RN) Birthweight Baby A: 3702 (07/07/2020 21:57:Delicia Go RN) 60a. Pounds : 8 (07/07/2020 21:57:QS system process) 60b. Ounces: 3 (07/07/2020 21:57:QS system process) 61. GA at Delivery Baby A: 39.5 (07/07/2020 21:57:Delicia Go RN) : Full Term- 39- 40.6 Weeks (07/07/2020 21:57:QS system process) 62a. 5 Minute Baby A: 9 (07/07/2020 21:57:QS system process)
--- NOTE | 2020-09-02 14:02 | Delivery Summary ---
Del Sum A-C Datetime Report Generated by CPN: 09/02/2020 14:02 DELIVERY PERSONNEL DELIVERY PERSONNEL: [id number] Delivery Doctor:: Christina Camacho CNM Nurse Ceramic Tile Setter Certified:: Christina Camacho CNM Labor and Delivery Nurse:: Terri Rodriguez RN Nursery Nurse:: Delicia Go RN Nursery Nurse:: Dulce Bahena RN Additional Personnel: : Radha Sung RN MATERNAL INFORMATION Delivery Anesthesia: None Medications After Delivery: Pitocin 30 Units in 500ml NS/D5W Estimated Blood Loss (ml): 50 Delivery QBL: 50 Maternal Complications: None Provider Comments: Called to room 4 for delivery. Patient pushing uncontrollably. Instructed how to push and was able to push to delivery. Compound hand, right, reduced prior to delivery of shoulders and body. vertex EDWARD at 1240. Spontaneous respirations and cry. 3-vessel cord. Apgars 8-9. Cord clamped x2, after 2 min delay, then cut by CNM. Placenta expelled at 1214, Garcia. Superficial perineal tear repaired as above. FF @ U-3. Hemostasis achieved. Patient tolerated procedure. LABOR SUMMARY EDC: 09/04/2020 00:00 No. Babies in Womb: 1 Attempted: No Labor Anesthesia: None LABOR INFORMATION Reason for Induction: Not Applicable Onset of Labor: 09/02/2020 05:30 Complete Dilatation: 09/02/2020 12:03 Oxytocin: Augmentation Group B Beta Strep: Negative Antibiotics # of Doses: 0 Name of Antibiotic Given: N/A Steroids Given: > 24 Hours before Delivery Reason Steroids Not Administered: Not Applicable MEMBRANES Membranes Rupture Method: Spontaneous Rupture of Membranes: 09/02/2020 05:30 Length of Rupture (hr): 6.67 Amniotic Fluid Color: Clear Amniotic Fluid Amount: Moderate Amniotic Fluid Odor: Normal STAGES OF LABOR Stage 1 hr: 6 Stage 1 min: 33 Stage 2 hr: 0 Stage 2 min: 7 Stage 3 hr: 0 Stage 3 min: 4 Total Time in Labor hr: 6 Total Time in Labor min: 44 VAGINAL DELIVERY Episiotomy: None Laceration #1: Perineal Laceration Extension #1: N/A Other Laceration: Superficial Laceration Repair: Yes Laceration Repair Note: Small perineal tear repaired using 3-0 Chromic suture with interrupted stitches Sponge Count Correct: N/A Sharps Count Correct: Yes CSECTION DELIVERY Primary Indication: N/A Secondary Indication: N/A CSection Incidence: N/A Labor: N/A Elective: N/A CSection Incision: N/A BABY A INFORMATION Infant Delivery Date/Time: 09/02/2020 12:10 Method of Delivery: Vaginal Nurse Controlled Delivery: No Born in Route : No : N/A Forceps: N/A Vacuum Extraction: N/A Shoulder Dystocia : No PRESENTATION/POSITION BABY A Presentation: Cephalic Cephalic Presentation: Vertex Vertex Position: Right Occipital Anterior Breech Presentation: N/A PLACENTA INFORMATION BABY A Placenta Delivery Time : 09/02/2020 12:14 Placenta Method of Delivery: Spontaneous Placenta Status: Delivered SCORES BABY A Heart Rate 1 min: >100 bpm Resp Effort 1 min: Good Cry Reflex Irritability 1 min: Cough or Sneeze or Pulls Away Muscle Tone 1 min: Active Motion Color 1 min: Blue/Pale Resuscitation Effort 1 min: Tactile Stimulation SCORE 1 MIN: 8 Heart Rate 5 min: >100 bpm Resp Effort 5 min: Good Cry Reflex Irritability 5 min: Cough or Sneeze or Pulls Away Muscle Tone 5 min: Active Motion Color 5 min: Body [place], Extremities Blue Resuscitation Effort 5 min: N/A SCORE 5 MIN: 9 Resuscitation Effort 10 min: N/A INFORMATION BABY A Gestational Age at Delivery: 39.5 Gestational Status: Full Term- 39- 40.6 Weeks Outcome : Liveborn Condition : Stable Sex: Male IDENTIFICATION BABY A Infant Verification Date/Time: 09/02/2020 12:48 ID Band Number: [id number] Mother's Name Verified: Yes RN Verifying Infant: Guillermina, RN Additional Verifying Personnel: Charles MejiaBJORN II WEIGHT/LENGTH BABY A Birthweight (gm): 3702 Weight (lb): 8 Infant Weight (oz): 3 Length (in): 21.00 Length (cm): 53.34 CORD INFORMATION BABY A No. Cord Vessels: 3 Nuchal Cord : N/A Nuchal Cord- Other: Compound Hand, Right Cord Blood Taken: Yes-For Storage (Mom's Blood type +) Suction: None ASSESSMENT BABY A Infant Complications: Other Infant Complications- Other: Prolonged FHR decel just prior to delivery. Physical Findings at Delivery: Molding of the Head Infant Respirations: Appears Normal Skin to Skin: Yes Skin to Skin Time (min): 45 Property Management Bookkeeper/ALS Called : No Care By: ELLEN Sarmiento Transferred To: Remains with Mother BABY B INFORMATION : N/A SIGNATURES Assignment: Hien Armijo MD Signature: with User ID: Angelika : with User ID: Angelika : I personally evaluated and examined the patient in conjunction with the MLP and agree with the assessment, treatment plan and disposition.
[2020-09-02] MEDS ORDERED: IBUPROFEN 800 MG TABLET ONE (14:10)
[2020-09-02] MEDS: IBUPROFEN 800 MG TABLET PO SCH ×2 (14:11→21:56)
[2020-09-02] MEDS: FERROUS SULFATE 325 MG TABLET PO SCH (18:12)
[2020-09-02] MEDS: DOCUSATE SODIUM 100 MG CAPSULE PO SCH (18:12)
[2020-09-02] MEDS: FAMOTIDINE 20 MG TABLET PO SCH (21:55)
[2020-09-03] MEDS: IBUPROFEN 800 MG TABLET PO SCH ×3 (06:34→22:27)
[2020-09-03 08:37] LABS: HEMATOCRIT 31.3 % (36.0-47.0); HEMOGLOBIN 10.6 g/dL (12.0-15.5); MEAN CORPUSCULAR HEMOGLOBIN 28.3 pg (27.0-33.4); MEAN CORPUSCULAR HGB CONC 33.9 g/dL (32.0-36.0); MEAN CORPUSCULAR VOLUME 84 fl (80-97); PLATELET COUNT 242 10^3/uL (150-450); RED BLOOD COUNT 3.74 10^6/uL (3.72-5.28); RED CELL DISTRIBUTION WIDTH 13.4 % (11.5-14.0); WHITE BLOOD COUNT 11.4 10^3/uL (4.0-10.5)
[2020-09-03] MEDS: SENNOSIDES/DOCUSATE 8.6-50 MG 1 EACH TABLET PO SCH (09:52)
[2020-09-03] MEDS: DOCUSATE SODIUM 100 MG CAPSULE PO SCH ×2 (09:52→17:47)
[2020-09-03] MEDS: PRENATAL VITAMIN W DHA CAPSULE PO SCH (09:52)
[2020-09-03] MEDS: FERROUS SULFATE 325 MG TABLET PO SCH ×2 (09:52→17:47)
[2020-09-03] MEDS: FAMOTIDINE 20 MG TABLET PO SCH ×2 (09:52→22:27)
--- NOTE | 2020-09-03 12:28 | PDOC PROGRESS REPORT ---
Subjective-OB Progress Note for:: 09/03/20 Subjective: Pt doing well, no concerns. Bleeding normal, reg diet and voids w/o difficulty. Physical Exam (OB) Vital Signs: Temp Pulse Resp BP Pulse Ox 97.8 F 80 16 115/69 98 09/03/20 09:47 09/03/20 07:25 09/03/20 07:25 09/03/20 07:25 09/03/20 07:25 Intake & Output 09/02/20 09/03/20 09/04/20 06:59 06:59 06:59 Intake Total 120 120 Balance 120 120 Weight 72.5 kg - Maternal Morbidity 59. Maternal Morbidity (serious complications experinced by the mother associated with labor and delivery: None of the above - Lochia Lochia Amount: Scant < 10 ml Lochia Color: Rubra/Red - Abdomen Description: Soft Hernia Present: No Fundal Description: Firm Fundal Height: u/u - u/2 Objective-Diagnostic Laboratory: 09/03/20 07:32 09/03/20 07:32 WBC 11.4 H RBC 3.74 Hgb 10.6 L Hct 31.3 L MCV 84 MCH 28.3 MCHC 33.9 RDW 13.4 Plt Count 242 Assessment and Plan(PN) - Assessment and Plan (1) Marijuana use in Is this a current diagnosis for this admission?: Yes (2) Normal vaginal delivery Is this a current diagnosis for this admission?: Yes (3) Obstetrical laceration, second degree Is this a current diagnosis for this admission?: Yes - Time Spent with Patient Time with patient: Less than 15 minutes Medications reviewed and adjusted accordingly: Yes - Disposition Anticipated Discharge Disposition: Home, Self Care Anticipated Discharge Timeframe: within 48 hours
[2020-09-04] MEDS: IBUPROFEN 800 MG TABLET PO SCH (05:47)
--- NOTE | 2020-09-04 08:44 | PDOC DISCHARGE SUMMARY ---
Impression - Admit/DC Date/PCP Admission Date/Primary Care Provider: 09/02/20 07:32 ALBA TOMLINSON MD Discharge Date: 09/04/20 - Discharge Diagnosis (1) Marijuana use in Is this a current diagnosis for this admission?: Yes (2) Normal vaginal delivery Is this a current diagnosis for this admission?: Yes (3) Obstetrical laceration, second degree Is this a current diagnosis for this admission?: Yes (4) Positive GBS test Is this a current diagnosis for this admission?: Yes - Additional Information Resuscitation Status: Full Code Discharge Diet: Regular Discharge Activity: Balance Activity w/Rest, Pelvic Rest Referrals: ALBA TOMLINSON MD [Primary Care Provider] - Prescriptions: Ibuprofen [Motrin 800 mg Tablet] 800 mg PO Q8HP PRN #60 tablet PRN Reason: Home Medications: Vit,Calc76/Iron/Folic [Pnv 29-1 Tablet] 1 tab PO DAILY 02/14/19 Ibuprofen [Motrin 800 mg Tablet] 800 mg PO Q8HP PRN #60 tablet 09/04/20 HPI Gestational Age: 39.5 Reason(s) for Admission: Onset of Labor Procedures: NST Intrapartum Procedure(s): Spontaneous Vaginal Delivery Complication(s): Laceration-Perineal Laceration-Degree: 1st Hospital Course 59. Maternal Morbidity (serious complications experinced by the mother associated with labor and delivery: None of the above Results Laboratory Results: WBC 11.4 10^3/uL (4.0-10.5) H 09/03/20 07:32 RBC 3.74 10^6/uL (3.72-5.28) 09/03/20 07:32 Hgb 10.6 g/dL (12.0-15.5) L 09/03/20 07:32 Hct 31.3 % (36.0-47.0) L 09/03/20 07:32 MCV 84 fl (80-97) 09/03/20 07:32 MCH 28.3 pg (27.0-33.4) 09/03/20 07:32 MCHC 33.9 g/dL (32.0-36.0) 09/03/20 07:32 RDW 13.4 % (11.5-14.0) 09/03/20 07:32 Plt Count 242 10^3/uL (150-450) 09/03/20 07:32 Urine Color YELLOW 09/02/20 07:00 Urine Appearance CLEAR 09/02/20 07:00 Urine pH 7.0 (5.0-9.0) 09/02/20 07:00 Ur Specific [place] 1.016 09/02/20 07:00 Urine Protein NEGATIVE mg/dL (NEGATIVE) 09/02/20 07:00 Urine Glucose (UA) NEGATIVE mg/dL (NEGATIVE) 09/02/20 07:00 Urine Ketones NEGATIVE mg/dL (NEGATIVE) 09/02/20 07:00 Urine Blood NEGATIVE (NEGATIVE) 09/02/20 07:00 Urine Nitrite NEGATIVE (NEGATIVE) 09/02/20 07:00 Urine Bilirubin NEGATIVE (NEGATIVE) 09/02/20 07:00 Urine Urobilinogen NEGATIVE mg/dL (<2.0) 09/02/20 07:00 Ur Leukocyte Esterase NEGATIVE (NEGATIVE) 09/02/20 07:00 Urine Ascorbic Acid NEGATIVE (NEGATIVE) 09/02/20 07:00 Membranes Rupture POSITIVE (NEGATIVE) H 09/02/20 07:10 Urine Opiates Screen NEGATIVE 09/02/20 07:00 Urine Methadone Screen NEGATIVE 09/02/20 07:00 Ur Barbiturates Screen NEGATIVE 09/02/20 07:00 Ur Phencyclidine Scrn NEGATIVE 09/02/20 07:00 Ur Amphetamines Screen NEGATIVE 09/02/20 07:00 U Benzodiazepines Scrn NEGATIVE 09/02/20 07:00 Urine Cocaine Screen NEGATIVE 09/02/20 07:00 U Marijuana (THC) Screen NEGATIVE 09/02/20 07:00 RPR NONREACTIVE (NONREACTIVE) 09/02/20 08:18 Blood Type B POSITIVE 09/02/20 08:18 Antibody Screen NEGATIVE 09/02/20 08:18 Plan Plan of Treatment: discharge home, f/u at [facility], repeat PAP Time Spent: Less than 30 Minutes
[2020-09-04] MEDS: SENNOSIDES/DOCUSATE 8.6-50 MG 1 EACH TABLET PO SCH (10:02)
[2020-09-04] MEDS: FAMOTIDINE 20 MG TABLET PO SCH (10:02)
[2020-09-04] MEDS: FERROUS SULFATE 325 MG TABLET PO SCH (10:02)
[2020-09-04] MEDS: DOCUSATE SODIUM 100 MG CAPSULE PO SCH (10:02)
[2020-09-04] MEDS: PRENATAL VITAMIN W DHA CAPSULE PO SCH (10:02)
[2020-09-04 11:36] VITALS: BP 121/61
== END 2020-09-04 12:19 | disposition home or self-care (01) | DRG 806 ==
LOC: LC 06:44 → LR 07:32 → 2S 14:25
PROVIDERS: ADMIT Obstetrics & Gynecology; ATTEND Obstetrics & Gynecology
PROC: 10E0XZZ Delivery of Products of Conception, External Approach (ICD-10-PCS; principal; 2020-09-02)
PROC: 0HQ9XZZ Repair Perineum Skin, External Approach (ICD-10-PCS; 2020-09-02)
DX: O32.6XX0 Maternal care for compound presentation, not applicable or unspecified (principal); O99.324 Drug use complicating childbirth; Z37.0 Single live birth; O70.0 First degree perineal laceration during delivery; Z3A.39 39 weeks gestation of pregnancy; O76 Abnormality in fetal heart rate and rhythm complicating labor and delivery; O99.824 Streptococcus B carrier state complicating childbirth; F12.90 Cannabis use, unspecified, uncomplicated
CPT/HCPCS: 36415; 80307; 81005; 84112; 85027; 86592; 86850; 86900; 86901; 88307; J2590; J2795; J3010; J3490